=== PATIENT | male | born 2000 | race Asian ===

== ENCOUNTER 2019-12-25 16:44 | Emergency (ER) | payer OTHER ==
--- NOTE | 2019-12-25 17:40 | ED ---
Back Pain - HPI Summary HPI Summary: 19-year-old male presents to the emergency department today complaining of low back pain after being in a snowboarding accident approximately one hour ago. Patient states he was snowboarding when he hit a jump and landed on his back from approximately 5 feet high. Patient denies loss of consciousness and was able to and really at the scene. Patient denies incontinence, radiculopathy, saddle paresthesia. There is no deformity, ecchymosis, erythema, edema. Patient has full range of motion of the spine. The patient otherwise feels well and denies fever, chest pain, abdominal pain, pain with urination, rash, nausea, vomiting, diarrhea, headache. - History of Current Complaint Chief Complaint: EDBackInjuryPain Stated Complaint: FALL- BACK PAIN PER PT Time Seen by Provider: 12/25/19 17:07 Hx Obtained From: Patient Onset/Duration: Sudden Onset Onset/Duration: Started Hours Ago Timing: Constant Severity Initially: Moderate Severity Currently: Moderate Pain Intensity: 5 Pain Scale Used: 0-10 Numeric Character: Aching Aggravating Symptom(s): Movement, Lifting, Bending, Walking Alleviating Symptom(s): Rest Associated Signs And Symptoms: Positive: Flank Pain. Negative: Swelling, Redness, Bruising, Fever, Weakness, Numbness, Tingling, Bladder Incontinence, Bowel Incontinence - Allergies/Home Medications Allergies/Adverse Reactions: Allergies Allergy/AdvReac Type Severity Reaction Status Date / Time No Known Allergies Allergy Verified 12/25/19 16:55 Home Medications: Home Medications NK [No Home Medications Reported] 12/25/19 [History Confirmed 12/25/19] PMH/Surg Hx/FS Hx/Imm Hx Infectious Disease History: No Infectious Disease History: Denies: Traveled Outside the [place] in Last 30 Days - Social History Alcohol Use: None Substance Use Type: Reports: None Smoking Status (MU): Never Smoked Tobacco Review of Systems Constitutional: Negative Eyes: Negative ENT: Negative Cardiovascular: Negative Respiratory: Negative Gastrointestinal: Negative Genitourinary: Negative Positive: Myalgia Skin: Negative Neurological/Mental Status: Negative Psychological: Normal All Other Systems Reviewed And Are Negative: Yes Physical Exam - Summary Physical Exam Summary: Patient was in no acute distress. Patient had full range of motion of the spine. Patient had no radiculopathy with straight leg raise. Patient had pain with palpation of the paraspinal muscles on the left. No evidence of ecchymosis , edema, erythema. No midline tenderness with palpation of the cervical, thoracic, lumbar spine. Triage Information Reviewed: Yes Vital Signs On Initial Exam: Initial Vitals Temp Pulse Resp BP Pulse Ox 99.9 F 72 18 124/63 98 12/25/19 16:53 12/25/19 16:53 12/25/19 16:53 12/25/19 16:53 12/25/19 16:53 Vital Signs Reviewed: Yes Appearance: Positive: Well-Appearing, No Pain Distress, Well-Nourished Skin: Positive: Warm, Skin Color Reflects Adequate Perfusion Eyes: Positive: EOMI, GARRICK ENT: Positive: Hearing grossly normal Respiratory/Lung Sounds: Positive: Clear to Auscultation, Breath Sounds Present Cardiovascular: Positive: RRR, S1, S2 Abdomen Description: Positive: Nontender, Soft Bowel Sounds: Positive: Present Musculoskeletal: Positive: Strength/ROM Intact Neurological: Positive: Sensory/Motor Intact, Alert, Oriented to Person Place, Time, Normal Gait, Facial Symmetry, Speech Normal Psychiatric: Positive: Normal, Affect/Mood Appropriate AVPU Assessment: Alert Procedures - Sedation Patient Received Moderate/Deep Sedation with Procedure: No Diagnostics - Vital Signs Vital Signs Temp Pulse Resp BP Pulse Ox 12/25/19 16:53 99.9 F 72 18 124/63 98 - Laboratory Lab Statement: Any lab studies that have been ordered have been reviewed, and results considered in the medical decision making process. Back Pain Course/Dx - Course Course Of Treatment: Patient was evaluated in the emergency department today for low back pain after a snowboarding accident. Patient evaluated. Patient afebrile. No evidence of cauda equina or epidural abscess. Patient had full range of motion and a nonantalgic gait. Patient's physical exam consistent with mechanical back pain with lumbar muscle strain. No imaging was deemed necessary. Patient discharge and outpatient follow-up. - Diagnoses Differential Diagnosis/HQI/PQRI: Positive: Cauda Equina Syndrome, Compressive Cord Syndrome, Epidural Abscess, Fracture, Herniated Disc, Strain, Sprain Provider Diagnoses: Low back pain Discharge ED - Sign-Out/Discharge Documenting (check all that apply): Patient Departure - Discharge Plan Condition: Stable Disposition: HOME Patient Education Materials: Low Back Strain (ED) Referrals: No Primary Care Phys,NOPCP [Primary Care Provider] - Joi Cronin MD [Medical Doctor] - 3 Days Additional Instructions: You were seen in the emergency department today for back pain. Please follow up with your primary care physician in 5 days for further evaluation and management of your injury. Please take for your symptoms: * Ibuprofen 600mg three times daily with meals for pain. (Anti Inflammatory) Most people with an episode of low back pain do not have a serious medical problem, and can try simple treatments such as: Staying active The best thing you can do is to stay as active as possible. People with low back pain recover faster if they stay active. If your pain is severe, you might need to rest for a day or 2. But it's important to get back to walking and moving as soon as possible. While you should avoid heavy lifting and sports while your back hurts, try to keep doing your normal daily activities. Heat Some people find that it helps to use a heating pad or heated wrap. Be careful to avoid high heat settings to prevent skin ayala. Spinal manipulation This is when a chiropractor, physical therapist, or other professional moves or "adjusts" the joints of your back. If you want to try this, talk to your doctor or nurse first. Acupuncture This is when someone who knows traditional [place] medicine inserts tiny needles into your body to block pain signals. Massage While back pain usually goes away within a few weeks, some people do continue to have pain for longer. In this case, additional treatments might include: Self care This involves being aware of your pain. While you should rest when you need to, it's important to stay active as much as you can. Things like applying heat and doing gentle stretches can help you feel better, too. Physical therapy A physical therapist is an exercise expert who can teach you stretches and movements to help strengthen your muscles. The goal is to relieve pain but also help you get back to your normal activities. Exercises you can try include walking, swimming, or using an exercise bike. Some people also find that Larry Chi or yoga can help with their back pain. Finding activities you enjoy can help you stay active. Reducing stress Some people find that it helps to try something called "mindfulness-based stress reduction." This involves going to a group program to practice relaxation and meditation. If your back pain is making you feel anxious or depressed, talk to your doctor or nurse. There are other treatments that can help with these problems. Only a small number of people end up needing surgery to treat back pain. - Billing Disposition and Condition Condition: STABLE Disposition: Home - Attestation Statements Provider Attestation: I was available for consult. This patient was seen by the [facility]. The patient was not presented to, seen by, or examined by me. Newton Campos MD
[2019-12-25 17:46] VITALS: BP 124/93
== END 2019-12-25 17:45 | disposition home or self-care (01) ==
LOC: ED 16:44
DX: M54.5 Low back pain (principal)
CPT/HCPCS: 99282